=== PATIENT | male | born 1955 | race American Indian/Alaskan Native ===

== ENCOUNTER 2017-04-22 09:45 | Outpatient (CLI) | payer BC ==
--- NOTE | 2017-04-22 11:24 | XRay Report ---
XRAY RIGHT KNEE 4 THREE VIEWS: 04/22/17 CLINICAL: Knee pain. 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 No apparent loosening.Suspect a small joint effusion.Moderate anterior subcutaneous soft tissue edema. IMPRESSION: Soft tissue edema and small joint effusion.
== END 2017-04-22 09:46 | disposition home or self-care (01) ==
LOC: SPVIMAG 09:45
PROVIDERS: ATTEND Orthopaedic Surgery Sports Medicine
DX: M25.461 Effusion, right knee (principal); M25.561 Pain in right knee; Z96.651 Presence of right artificial knee joint

== ENCOUNTER 2019-03-31 15:30 | Outpatient (CLI) | payer MEDICARE, BC ==
--- NOTE | 2019-03-31 18:11 | XRay Report ---
Right middle finger, 2 views INDICATION: Pain and swelling FINDINGS: There is no bone or joint abnormality with no osteomyelitis or septic arthritis. There are several radiopaque densities near the distal interphalangeal joint which may be early calcification i n the soft tissues. These do not appear to be foreign bodies. Otherwise no abnormality. Signer Name: Conner Arreguin MD Signed: 03/31/2019 6:07 PM Workstation Name: [id number]
== END 2019-03-31 15:31 | disposition home or self-care (01) ==
LOC: SPVIMAG 15:30
PROVIDERS: ATTEND Internal Medicine
DX: L03.011 Cellulitis of right finger (principal)